=== PATIENT | male | born 1980 | race Caucasian/White ===

== ENCOUNTER 2018-03-15 08:35 | Emergency (ER) | payer OTHER ==
[2018-03-15 08:58] VITALS: BP 123/92
--- NOTE | 2018-03-15 09:07 | ED Physician Documentation ---
General Adult - HISTORIAN Historian: patient, other (caregiver) - HPI Stated Complaint: Fall Chief Complaint: General Adult Additional Information: Fell on carpeted steps last evening and hit the back of his head. No LOC. No treatment attempted. Resident of [facility]. No other modifying factors or associated signs. - ROS CONST: no problems - PAST HX Past History: other (MR, blind) Allergies/Adverse Reactions: Allergies Allergy/AdvReac Type Severity Reaction Status Date / Time Cephalosporins Allergy Verified 03/15/18 08:58 Penicillins Allergy Verified 03/15/18 08:58 Home Medications: Ambulatory Orders Medication Instructions Recorded Divalproex Sodium [Depakote] 500 mg PO BID 07/16/14 Escitalopram Oxalate [Lexapro] 30 mg PO D 07/16/14 Lamotrigine [Lamictal] 200 mg PO BID 07/16/14 Pnv,Calcium 72/Iron/Folic Acid 1 each PO D 07/16/14 [ Plus Multivitamin Tab] Ranitidine HCl [Zantac] 150 mg PO HS 07/16/14 Ziprasidone HCl [Geodon] 80 mg PO BID 07/16/14 - SOCIAL HX Smoking History: non-smoker Alcohol Use: none Drug Use: none - FAMILY HX Family History: No (no signif) - VITAL SIGNS Vital Signs: Vital Signs Temp Pulse Resp BP Pulse Ox 98.2 F 84 18 123/92 96 03/15/18 08:47 03/15/18 08:47 03/15/18 08:47 03/15/18 08:47 03/15/18 08:47 - REVIEWED ASSESSMENTS Nursing Assessment Reviewed: Yes Vitals Reviewed: Yes ED Results Lab/Radiology - Orders Orders: ED Orders Category Date Time Status Cleanse with NS and Chlorhexid 1T Care 03/15/18 09:05 Ordered Ibuprofen [Advil] Med 03/15/18 09:05 Once 600 mg PO NOW ONE Neomycin/Bacitracin/Polymyxinb [Triple Antibiotic Med 03/15/18 09:05 Once Ointment] 1 each TP NOW ONE General Adult Physical Exam - PHYSICAL EXAM GENERAL APPEARANCE: no distress EENT: ENT inspection normal, other (blind. 2 cm diameter swelling left occiput, < 1 cm elevation, tender to touch) NECK: normal inspection, supple, other (non tender) RESPIRATORY: no resp distress, breath sounds normal CVS: reg rate & rhythm, heart sounds normal BACK: normal inspection SKIN: warm/dry, normal color, other (6 cm superficial abrasion L forearm) EXTREMITIES: non-tender, no evidence of injury NEURO: motor nml, sensation nml, other (reflexes 2+ throughout. Verbal, appro priate.) Discharge Clincal Impression: Fall Qualifiers: Encounter type: initial encounter Qualified Code(s): W19.XXXA - Unspecified fall, initial encounter Contusion of occipital region of scalp Qualifiers: Encounter type: initial encounter Qualified Code(s): S00.03XA - Contusion of scalp, initial encounter Abrasion of left arm Qualifiers: Encounter type: initial encounter Qualified Code(s): S40.812A - Abrasion of left upper arm, initial encounter Referrals: Primary Doctor,No [Primary Care Provider] - 2 Days Additional Instructions: You can take 1000 mg of tylenol as often as every 8 hours if needed for headache. Return to the ER immediately if you have prolonged vomiting or unusual behavior. Condition: Good Disposition: 01 HOME, SELF-CARE Decision to Admit: NO Decision Time: 09:11
[2018-03-15] MEDS: IBUPROFEN 200 MG TABLET PO ONE (09:16)
[2018-03-15] MEDS: NEOMYCIN/BACITRACIN/POLYMYXINB 1 EACH OINT.PACK TP ONE (09:16)
== END 2018-03-15 09:19 | disposition home or self-care (01) ==
LOC: ED 08:35
DX: S00.03XA Contusion of scalp, initial encounter (principal); S40.812A Abrasion of left upper arm, initial encounter; W19.XXXA Unspecified fall, initial encounter; Y92.128 Other place in nursing home as the place of occurrence of the external cause; Y93.9 Activity, unspecified; Y99.9 Unspecified external cause status
CPT/HCPCS: 99282